=== PATIENT | male | born 1935 | race Caucasian/White ===

== ENCOUNTER 2021-03-21 07:40 | Inpatient (IN) ==
[2021-03-21] MEDS ORDERED: ONDANSETRON 4 MG/2 ML VIAL IV STA (08:30)
[2021-03-21] MEDS ORDERED: HYDROmorphone 2 MG/1 ML VIAL IV STA ×2 (08:30→10:10)
[2021-03-21] MEDS ORDERED: HYDROmorphone 2 MG/1 ML VIAL ONE (08:33)
[2021-03-21] MEDS ORDERED: ONDANSETRON 4 MG/2 ML VIAL ONE (08:33)
[2021-03-21] MEDS ORDERED: ceFAZolin 2,000 MG/50 ML DUPLEX IV ONE (08:34)
[2021-03-21] MEDS ORDERED: GLUCAGON 1 MG VIAL IM PRN (08:50)
[2021-03-21] MEDS ORDERED: DEXTROSE 50% 25 GM/50 ML VIAL IV PRN (08:50)
[2021-03-21] MEDS ORDERED: ONDANSETRON 4 MG/2 ML VIAL IV PRN (08:50)
[2021-03-21] MEDS ORDERED: MORPHINE 2 MG/1 ML SYRINGE IV PRN ×3 (08:50→12:05)
[2021-03-21 08:55] LABS: Basophils # 0.1 10*3/uL (0.0-0.2); Basophils % 0.5 % (0.0-0.8); Eosinophils # 0.2 10*3/uL (0.0-0.87); Eosinophils % 1.4 % (0.00-10.9); Hematocrit 31.9 VOL% (42.0-52.0); Immature Granulocytes % 4.2 %; Immature Granulocytes Absolute 0.62 #; Lymphocytes # 2.1 10*3/uL (1.4-4.0); Lymphocytes % 14.1 % (21.2-54.2); Mean Corpuscular HGB Conc 31.3 GM/DL (32-36); Mean Corpuscular Volume 81.6 FL (87-102); Mean Platelet Volume 8.1 FL (9.6-12.0); Monocytes % 4.4 % (1.7-12.7); Neutrophils % 75.4 % (38.7-73.9); Platelet Count 336 T/CUMM (130-400); Red Blood Count 3.91 MC/CUMM (3.8-5.5); Red Cell Distribution Width 14.2 % (9.3-17.3); White Blood Count 14.7 T/CUMM (4-12)
[2021-03-21] MEDS ORDERED: SODIUM CHLORIDE 0.9% 1,000 ML IV SCH (09:00)
[2021-03-21 09:07] LABS: PT Patient Result 11.4 SECS (10.5-12.0); Partial Thromboplastin Time 22.7 SECS (23.9-33.8)
[2021-03-21 09:15] LABS: Albumin 3.5 G/DL (3.4-5.0); Bilirubin,Total 0.5 MG/DL (0.20-1.00); Calcium 8.9 MG/DL (8.5-10.1); Osmolality,Calculated 280.7 MOS/KG (273-304); Potassium 3.6 MMOL/L (3.5-5.1); Total Protein 7.2 G/DL (6.4-8.2)
[2021-03-21 09:20] LABS: Eosinophils 1 % (0-10); Hypochromasia 1+; Lymphocytes 12 % (20-55); Microcytosis Slight; Segmented Neutrophils 85 % (50-85); Total Cells Counted 100
[2021-03-21] MEDS ORDERED: FONDAPARINUX 2.5 MG/0.5 ML SYRINGE SUBCUT SCH (09:30)
[2021-03-21] MEDS ORDERED: ceFAZolin 1,000 MG VIAL ONE (10:22)
[2021-03-21] MEDS: DOCUSATE SODIUM 100 MG CAPSULE PO SCH ×2 (10:38→20:35)
[2021-03-21] MEDS: PANTOPRAZOLE 40 MG TABLET PO SCH (10:39)
[2021-03-21] MEDS ORDERED: fentaNYL 100 MCG/2 ML VIAL ONE (10:45)
[2021-03-21] MEDS ORDERED: KETAMINE 500 MG/10 ML VIAL ONE (10:45)
[2021-03-21] MEDS ORDERED: propofoL 200 MG/20 ML VIAL IV ONE (11:41)
[2021-03-21] MEDS ORDERED: SODIUM CHLORIDE 0.9% 100 ML IV ONE (11:41)
[2021-03-21] MEDS ORDERED: LIDOCAINE 2% 5 ML VIAL ONE (11:41)
[2021-03-21] MEDS ORDERED: methylPREDNISolone SOD SUC 125 MG/2 ML VIAL ONE (11:41)
[2021-03-21] MEDS ORDERED: BUPIVACAINE SPINAL 0.75% 2 ML AMP SPINAL ONE (11:45)
[2021-03-21] MEDS ORDERED: BACITRACIN OINT 0.9 GM PACK TOP ONE (11:49)
[2021-03-21] MEDS ORDERED: MAGNESIUM HYDROXIDE SUSP 30 ML UDCUP PO PRN (12:05)
[2021-03-21] MEDS ORDERED: BUPIVACAINE MPF 0.25% 30 ML VIAL ONE (12:16)
[2021-03-21] MEDS ORDERED: LIDOCAINE 1% 5 ML VIAL ONE (12:18)
[2021-03-21] MEDS ORDERED: DEXAMETHASONE 4 MG/1 ML VIAL ONE (12:18)
[2021-03-21 12:31] LABS: Bilirubin,Urine Negative (Negative); Blood, Urine Negative (Negative); Glucose,Urine (UA) Negative (Negative); Ketones,Urine Negative (Negative); Mucus,Urine Occasional /LPF (Occasional); Nitrite,Urine Negative (Negative); Protein,Urine Negative; RBC,Urine 2 /HPF (0-4); Squamous Epithelial Cell,Urine Occasional /HPF (0-10); Urine Appearance CLEAR (Clear); Urine Color Yellow (Yellow); Urine Specific Gravity 1.013 (1.001-1.035); Urine Urobilinogen < 2.0 EU/DL (0.2-1.0)
[2021-03-21] MEDS: LACTATED RINGERS 1,000 ML IV SCH ×2 (13:25→22:27)
[2021-03-21] MEDS: INSULIN LISPRO 100 UNIT/ML SUBCUT SCH ×3 (13:49→21:04)
[2021-03-21] MEDS: ceFAZolin 2,000 MG/50 ML DUPLEX IV SCH (15:36)
[2021-03-22] MEDS: ceFAZolin 2,000 MG/50 ML DUPLEX IV SCH (00:30)
[2021-03-22 05:36] LABS: Basophils % 0.1 % (0.0-0.8); Hematocrit 23.1 VOL% (42.0-52.0); Immature Granulocytes % 1.5 %; Immature Granulocytes Absolute 0.19 #; Lymphocytes # 0.7 10*3/uL (1.4-4.0); Lymphocytes % 5.3 % (21.2-54.2); Mean Corpuscular HGB Conc 32.5 GM/DL (32-36); Mean Corpuscular Volume 82.2 FL (87-102); Mean Platelet Volume 8.8 FL (9.6-12.0); Monocytes % 3.8 % (1.7-12.7); Neutrophils % 89.3 % (38.7-73.9); Red Cell Distribution Width 14.2 % (9.3-17.3)
[2021-03-22 05:39] LABS: Hemoglobin 7.5 GM/DL (14.0-18.0); Platelet Count 229 T/CUMM (130-400); Red Blood Count 2.81 MC/CUMM (3.8-5.5)
[2021-03-22] MEDS ORDERED: SODIUM CHLORIDE 0.9% 1,000 ML IV PRN (05:42)
[2021-03-22 05:46] LABS: Calcium 8.8 MG/DL (8.5-10.1); Potassium 4.7 MMOL/L (3.5-5.1)
[2021-03-22] MEDS: FONDAPARINUX 2.5 MG/0.5 ML SYRINGE SUBCUT SCH (06:03)
[2021-03-22] MEDS: INSULIN LISPRO 100 UNIT/ML SUBCUT SCH ×4 (08:09→20:07)
[2021-03-22] MEDS: PANTOPRAZOLE 40 MG TABLET PO SCH (08:56)
[2021-03-22] MEDS: DOCUSATE SODIUM 100 MG CAPSULE PO SCH ×2 (08:56→20:26)
[2021-03-22] MEDS: LACTATED RINGERS 1,000 ML IV SCH ×2 (11:38→18:05)
[2021-03-22 19:20] LABS: Hematocrit 28.1 VOL% (42.0-52.0); Hemoglobin 9.3 GM/DL (14.0-18.0)
[2021-03-23] MEDS: LACTATED RINGERS 1,000 ML IV SCH ×2 (03:19→17:34)
[2021-03-23 05:07] LABS: Basophils % 0.2 % (0.0-0.8); Eosinophils # 0.1 10*3/uL (0.0-0.87); Eosinophils % 0.6 % (0.00-10.9); Hematocrit 28.7 VOL% (42.0-52.0); Hemoglobin 9.4 GM/DL (14.0-18.0); Immature Granulocytes % 2.2 %; Immature Granulocytes Absolute 0.26 #; Lymphocytes # 0.9 10*3/uL (1.4-4.0); Lymphocytes % 7.8 % (21.2-54.2); Mean Corpuscular HGB Conc 32.8 GM/DL (32-36); Mean Corpuscular Volume 83.7 FL (87-102); Mean Platelet Volume 8.7 FL (9.6-12.0); Monocytes % 5.4 % (1.7-12.7); NRBC # 0.03 10*3/uL; Neutrophils % 83.8 % (38.7-73.9); Platelet Count 181 T/CUMM (130-400); Red Blood Count 3.43 MC/CUMM (3.8-5.5); Red Cell Distribution Width 15.6 % (9.3-17.3)
[2021-03-23] MEDS: FONDAPARINUX 2.5 MG/0.5 ML SYRINGE SUBCUT SCH (05:42)
[2021-03-23] MEDS: INSULIN LISPRO 100 UNIT/ML SUBCUT SCH ×4 (07:34→21:02)
[2021-03-23] MEDS: PANTOPRAZOLE 40 MG TABLET PO SCH (08:47)
[2021-03-23] MEDS: DOCUSATE SODIUM 100 MG CAPSULE PO SCH ×2 (08:47→20:41)
[2021-03-24] MEDS: LACTATED RINGERS 1,000 ML IV SCH ×3 (02:40→22:52)
[2021-03-24] MEDS: FONDAPARINUX 2.5 MG/0.5 ML SYRINGE SUBCUT SCH (05:44)
[2021-03-24 05:48] LABS: Basophils # 0.1 10*3/uL (0.0-0.2); Basophils % 0.5 % (0.0-0.8); Eosinophils # 0.3 10*3/uL (0.0-0.87); Eosinophils % 2.6 % (0.00-10.9); Hematocrit 29.4 VOL% (42.0-52.0); Hemoglobin 9.7 GM/DL (14.0-18.0); Immature Granulocytes % 1.7 %; Immature Granulocytes Absolute 0.17 #; Lymphocytes % 10.3 % (21.2-54.2); Mean Corpuscular Volume 82.6 FL (87-102); Monocytes % 5.3 % (1.7-12.7); NRBC # 0.03 10*3/uL; Neutrophils % 79.6 % (38.7-73.9); Platelet Count 192 T/CUMM (130-400); Red Blood Count 3.56 MC/CUMM (3.8-5.5); Red Cell Distribution Width 15.8 % (9.3-17.3); White Blood Count 9.9 T/CUMM (4-12)
[2021-03-24] MEDS: ACETAMINOPHEN 325 MG TABLET PO PRN ×2 (08:20→17:17)
[2021-03-24] MEDS: INSULIN LISPRO 100 UNIT/ML SUBCUT SCH ×4 (08:57→21:13)
[2021-03-24] MEDS: PANTOPRAZOLE 40 MG TABLET PO SCH (09:09)
[2021-03-24] MEDS: DOCUSATE SODIUM 100 MG CAPSULE PO SCH ×2 (09:09→20:45)
[2021-03-25] MEDS: FONDAPARINUX 2.5 MG/0.5 ML SYRINGE SUBCUT SCH (05:38)
[2021-03-25] MEDS: INSULIN LISPRO 100 UNIT/ML SUBCUT SCH ×2 (07:44→11:36)
[2021-03-25] MEDS: PANTOPRAZOLE 40 MG TABLET PO SCH (09:37)
[2021-03-25] MEDS: DOCUSATE SODIUM 100 MG CAPSULE PO SCH (09:37)
[2021-03-25] MEDS: LACTATED RINGERS 1,000 ML IV SCH (09:46)
[2021-03-25 11:20] VITALS: BP 150/78
== END 2021-03-25 11:50 | disposition home health service (06) | DRG 481 ==
LOC: EDUNIT# → N.ED 07:40 → N.EDINP 08:50 → N.3E 10:44
PROVIDERS: ADMIT Family Medicine; ATTEND Family Medicine